=== PATIENT | female | born 1970 | race African-American/Black ===

== ENCOUNTER 2018-07-13 15:32 | Emergency (ER) | payer MEDICAID ==
[~2018-07-13] VITALS: Ht 162.6 cm; Wt 53.0 kg
[2018-07-13 20:20] LABS: BASOPHILS % 0.4 % (0.0-2.0); EOSINOPHILS % 1.1 % (0.0-5.0); HEMATOCRIT. 37.9 % (36.0-48.0); HEMOGLOBIN. 13.2 g/dL (12.0-16.0); MEAN CORPUSCULAR HEMOGLOBIN 32.2 pg (28.0-32.0); MEAN CORPUSCULAR VOLUME 92.4 fL (81.0-99.0); MEAN PLATELET VOLUME 7.1 fl (7.4-10.4); MONOCYTES % 7.3 % (2.0-8.0); NEUTROPHILS % 41.2 % (40.0-76.0); PLATELET 183 x1000/uL (130-400); RED CELL DISTRIBUTION WIDTH 14.2 % (11.6-14.6)
[2018-07-13 20:22] LABS: CLARITY URINE CLEAR (CLEAR); COLOR URINE YELLOW (YELLOW); KETONES URINE NEGATIVE (NEGATIVE); LEUKOCYTE ESTERASE URINE NEGATIVE (NEGATIVE); NITRITE URINE NEGATIVE (NEGATIVE); OCCULT BLOOD URINE TRACE (NEGATIVE); PH URINE 6.5 (4.5-8.0); PROTEIN URINE NEGATIVE (NEGATIVE); SPECIFIC GRAVITY URINE 1.003 (1.005-1.030); UROBILINOGEN URINE 0.2 E.U./dL (0.2-1.0)
[2018-07-13 20:29] LABS: CHLORIDE 103 mEq/L (98-107); HCG SCREEN NEGATIVE; PARTIAL THROMBOPLASTIN TIME 27.2 sec (23.4-31.0); PROTHROMBIN TIME 10.3 sec (9.1-11.1)
[2018-07-13 20:48] LABS: *AMPHETAMINES SCREEN URINE NEGATIVE (NEGATIVE); *BARBITURATES SCREEN URINE NEGATIVE (NEGATIVE); *BENZODIAZEPINES SCREEN URINE NEGATIVE (NEGATIVE); *COCAINE SCREEN URINE NEGATIVE (NEGATIVE)
[2018-07-13 20:49] LABS: METHADONE URINE SCREEN NEGATIVE (NEGATIVE); OPIATES URINE SCREEN NEGATIVE (NEGATIVE); PHENCYCLIDINE URINE SCREEN NEGATIVE (NEGATIVE)
[2018-07-13 20:50] LABS: CANNABINOID URINE SCREEN PRESUMTIVE POSITIVE (NEGATIVE)
[2018-07-13 21:30] VITALS: BP 108/79
== END 2018-07-13 21:47 | disposition left against medical advice (07) ==
LOC: ER 16:58
DX: R00.2 Palpitations (principal); R06.2 Wheezing; F17.200 Nicotine dependence, unspecified, uncomplicated; F12.10 Cannabis abuse, uncomplicated; M19.90 Unspecified osteoarthritis, unspecified site
CPT/HCPCS: 36415; 71045; 80053; 80305; 81003; 81025; 83880; 84443; 84484; 84703; 85025; 85610; 85730; 93005; 99285; Z7610

== ENCOUNTER 2021-01-11 22:14 | Emergency (ER) | payer MEDICAID ==
[~2021-01-11] VITALS: Ht 170.2 cm; Wt 54.0 kg
[2021-01-11 22:35] VITALS: BP 120/78
== END 2021-01-11 22:43 | disposition home or self-care (01) ==
LOC: ER 22:14
DX: M25.559 Pain in unspecified hip (principal); F12.10 Cannabis abuse, uncomplicated
CPT/HCPCS: 99283

== ENCOUNTER 2021-01-24 07:09 | Emergency (ER) | payer MEDICAID ==
[~2021-01-24] VITALS: Ht 162.6 cm; Wt 50.0 kg
[2021-01-24] MEDS ORDERED: IBUPROFEN 600MG TABLET PO ONE (08:00)
[2021-01-24] MEDS ORDERED: KETOROLAC 60MG/2ML VIAL IM ONE (08:00)
[2021-01-24] MEDS ORDERED: BACITRACIN ZINC OINT UDPKT TOP ONE (08:00)
[2021-01-24] MEDS ORDERED: T3 PO (09:25)
[2021-01-24] MEDS ORDERED: IBUP-2029 MT (09:26)
[2021-01-24 09:33] VITALS: BP 142/94
== END 2021-01-24 09:34 | disposition home or self-care (01) ==
LOC: ER 07:27
DX: S62.611A Displaced fracture of proximal phalanx of left index finger, initial encounter for closed fracture (principal); S10.91XA Abrasion of unspecified part of neck, initial encounter; S20.319A Abrasion of unspecified front wall of thorax, initial encounter; S60.411A Abrasion of left index finger, initial encounter; M19.90 Unspecified osteoarthritis, unspecified site; Y08.89XA Assault by other specified means, initial encounter; Y93.9 Activity, unspecified; Y92.9 Unspecified place or not applicable
CPT/HCPCS: 29130; 73140; 99283; A4217; J1885; Z7610